=== PATIENT | female | born 1965 | race Caucasian/White ===

== ENCOUNTER 2017-01-09 17:20 | Emergency (ER) | payer OTHER ==
[2017-01-09 17:45] VITALS: BP 146/101
== END 2017-01-09 18:04 | disposition left against medical advice (07) ==
LOC: ER 17:20
DX: Z53.21 Procedure and treatment not carried out due to patient leaving prior to being seen by health care provider (principal)

== ENCOUNTER 2017-01-14 09:53 | Emergency (ER) | payer OTHER ==
[2017-01-14 10:16] VITALS: BP 132/90
[2017-01-14] MEDS ORDERED: DIPHTH,PERTUSS(ACELL),TET VAC 0.5 ML VIAL IM ONE ×2 (10:54→11:11)
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
[2017-01-14] MEDS ORDERED: RABIES VACCINE,HUMAN DIPLOID 2.5 UNITS VIAL IM ONE (12:30)
[2017-01-14] MEDS ORDERED: RABIES IMMUNE GLOBULIN 150 UNITS/ML ML IM ONE (12:30)
[2017-01-21] MEDS ORDERED: DIPHTH,PERTUSS(ACELL),TET VAC 0.5 ML VIAL IM ONE (08:30)
== END 2017-01-14 12:40 | disposition home or self-care (01) ==
LOC: ER 09:53
DX: S81.852A Open bite, left lower leg, initial encounter (principal); W54.0XXA Bitten by dog, initial encounter; Y93.89 Activity, other specified; Y92.9 Unspecified place or not applicable; E03.9 Hypothyroidism, unspecified; I10 Essential (primary) hypertension; Z23 Encounter for immunization; Z20.3 Contact with and (suspected) exposure to rabies